=== PATIENT | female | born 1955 | race Caucasian/White ===

== ENCOUNTER → 2017-03-22 | Outpatient (CLI) | payer OTHER | LOC: BMCIMAGING 16:23 | PROVIDERS: ATTEND Podiatrist Foot & Ankle Surgery | DX: T84.84XA Pain due to internal orthopedic prosthetic devices, implants and grafts, initial encounter (principal) ==

== ENCOUNTER → 2017-06-15 | Outpatient (CLI) | payer OTHER | LOC: BMCIMAGING 15:20 | PROVIDERS: ATTEND Family Medicine | DX: Z12.31 Encounter for screening mammogram for malignant neoplasm of breast (principal) | CPT/HCPCS: G0202 ==

== ENCOUNTER 2017-11-18 17:50 | Emergency (ER) | payer OTHER ==
--- NOTE | 2017-11-18 18:15 | EDPHY ---
HPI/HX/ROS/PE/MDM Narrative: CHIEF COMPLAINT: Dizzy HISTORY OF PRESENT ILLNESS: The patient is a 62 y/o female complaining of dizziness and nausea onset this morning. While standing up from bed this morning she had a 2 minute episode of dizziness. This past and she was able to go to work and was not symptomatic. When she came home she lied down and then had again developed abrupt dizziness when lying flat. Dizziness is described as a spinning sensation. Nausea but no vomiting. Dizziness is worse when sitting up or moving her head. Denies numbness or tinging in extremities. Denies history of vertigo. In addition to the dizziness, she has had a constant posterior headache and a sore/stiff neck for 10 days. She took one Aspirin twice a day for this pain, which helped for 2 hours. No fevers or URI symptoms. No sinus infection symptomatology. No chest pain, palpitations, lightheadedness, diarrhea. REVIEW OF SYSTEMS: Aside from elements discussed in the HPI, a comprehensive 10-point review of systems was reviewed and is negative. PAST MEDICAL HISTORY: Hypothyroid, microdiscectomy, right foot surgery SOCIAL HISTORY: at bedside, employed as a teacher, lives in [place]. Normally quite active. Goes to [employer] daily. VITAL SIGNS: Reviewed by me GENERAL: Lying still and does not want to sit up or stand as this aggravates her symptoms. Well-developed, well-nourished, resting comfortably in no respiratory distress. HEENT: Atraumatic. Eyes: No nystagmus, icterus, no injection. EOMI. Mouth: moist mucous membranes. No erythema or lesions. Neck: supple with no adenopathy. Some tenderness throughout paraspinous muscles. No meningismus. Negative Kernig's. Negative Brudzinski's. LUNGS: Clear to auscultation bilaterally, no wheezes, rhonchi or rales. CARDIAC: Regular rate and rhythm, no rubs, murmurs or gallops. ABDOMEN: Soft, nontender, nondistended, bowel sounds normal. BACK: No CVA tenderness. EXTREMITIES: No trauma. No edema. Range of motion is normal throughout. NEURO: Feels imbalanced while moving in bed. Alert and oriented, cranial nerves II through XII are intact. Motor strength 5 over 5 in all major muscle groups. Sensation intact to light touch. Slightly ataxic gait. SKIN: Warm and dry, no rash. PSYCHIATRIC: Normal mentation, no agitation. Portions of this note were transcribed by a medical assembler. I personally performed a history, physical exam, medical decision making, and confirmed accuracy of information the transcribed note. ED Course: The patient is a 62 y/o female presenting with dizziness and nausea onset this afternoon. She has also had a constant posterior headache and a sore neck for 10 days. She has a normal neurological exam except mild imbalance when walking and no nystagmus. She is currently lying still and does not want to sit up or stand as this aggravates her symptoms. Labs, EKG, and head CT ordered. 10mg IV Decadron, 25mg IV Benadryl, and 4mg IV Zofran initially administered. administered. 1912: Spoke with radiologist, patient's head CT is normal. Patient received p.o. Meclizine, and Toradol for her headache. 2023: Re-examination. Patient states very mild improvement in her symptoms. She is able to turn her head to the left in the right, reporting no change in the vertigo when looking to the right but the dizziness becomes severe when returning the head to midline and also no change in vertigo when looking to the left but again the dizziness worsens when returning to midline. Offer the patient Valium which she declined. Will administer 1 L of normal saline a proceed with MRI. 2036: Reassessed patient and discussed laboratory and imaging findings. She continues to not feel better. Brain MRI ordered. 2199: MRI is normal. Reassessed patient. She is sitting up in bed. She has continued to feel slightly better over time, but does have dizziness if she moves too abruptly. We discussed admission to the hospital for ongoing symptomatic care. She would prefer to be discharged home. I offered her Valium, she would prefer to take this once she gets home. She is with her . Her blood pressure has gradually decreased to his its baseline level. Patient will be discharged home with instructions regarding meclizine and Valium and close follow-up with her primary care physician. MDM: Differential diagnosis of the patient's dizziness was considered including but not limited to peripheral and central causes of vertigo, cardiac arrhythmias, cardiac ischemia, electrolyte disturbances, neurologic causes, orthostatic causes including dehydration, and blood loss. - Data Points Imaging: Discussed imaging studies w/ call or contact centre operator Radiologist, I viewed and interpreted images myself Laboratory Results: Laboratory Results 11/18/17 19:15 11/18/17 19:15 Medications Given: Discontinued Medications Dexamethasone (Decadron Injection) 10 mg IVP EDNOW ONE Stop: 11/18/17 18:42 Last Admin: 11/18/17 19:18 Dose: 10 mg Diazepam (Valium 5 Mg Prepack#4) 1 btl TAKEHOME EDNOW ONE Stop: 11/18/17 22:01 Last Admin: 11/18/17 22:14 Dose: 1 btl Diphenhydramine HCl (Benadryl Injection) 25 mg IVP EDNOW ONE Stop: 11/18/17 18:42 Last Admin: 11/18/17 19:17 Dose: 25 mg Sodium Chloride (Ns) 1,000 mls @ 0 mls/hr IV ONCE ONE; Wide Open PRN Reason: Protocol Stop: 11/18/17 20:50 Last Admin: 11/18/17 21:32 Dose: 1,000 mls Ketorolac Tromethamine (Toradol) 15 mg IVP EDNOW ONE Stop: 11/18/17 19:17 Last Admin: 11/18/17 19:37 Dose: 15 mg Meclizine HCl (Meclizine Hcl) 25 mg PO EDNOW ONE Stop: 11/18/17 19:22 Last Admin: 11/18/17 19:37 Dose: 25 mg Meclizine HCl (Meclizine Hcl) 25 mg PO EDNOW ONE Stop: 11/18/17 22:01 Last Admin: 11/18/17 22:11 Dose: 25 mg Ondansetron HCl (Zofran) 4 mg IVP EDNOW ONE Stop: 11/18/17 18:40 Last Admin: 11/18/17 19:18 Dose: 4 mg General Time Seen by Provider: 11/18/17 18:10 Initial Vital Signs: Initial Vital Signs Temperature (C) 36.4 C 11/18/17 17:56 Heart Rate 76 11/18/17 17:56 Respiratory Rate 16 11/18/17 17:56 Blood Pressure 206/97 H 11/18/17 17:56 O2 Sat (%) 98 11/18/17 17:56 O2 Delivery Mode Room Air Allergies/Adverse Reactions: codeine [Codeine] Adverse Reaction (Unknown, Verified 11/18/17 17:56) NAUSEA Home Medications: Medication Instructions Recorded None 10/11/09 Meclizine HCl 12.5 - 25 mg PO TID PRN #20 tablet 11/18/17 Synthroid 11/18/17 Departure - Departure Disposition: Home, Routine, Self-Care Clinical Impression: Vertigo, Dizziness, Headache Condition: Good Instructions: Vertigo (ED), Acute Headache (ED) Additional Instructions: You may use meclizine, 25 mg, as needed for dizziness. This will also help with motion sickness. It is available [id number] or with prescription. You been given a prepack of Valium. You may take 1/2 tablet, 2.5 mg, up to 3 times a day as needed for ongoing vertigo. Valium will make you quite sleepy. Please get plenty of rest. Please monitor your blood pressure. Please take Tylenol or ibuprofen as needed for headache. I would not use aspirin in the future for headache pain. Please follow up with your primary care physician if you have concerns regarding the persistence of symptoms, development of new symptoms such as vomiting, severe headache pain, numbness or tingling in your arms or legs, weakness, or other concerns. Referrals: Inessa Woody MD [Primary Care Provider] - As per Instructions Stand Alone Forms: Work Excuse Prescriptions: Meclizine HCl 12.5 - 25 mg PO TID PRN #20 tablet PRN Reason: dizziness, vertigo Report Scribed for: Rachel Sweeney Report Scribed by: Hailey Razo Date of Report: 11/18/17 Time of Report: 18:14
--- NOTE | 2017-11-18 18:23 | CPEKG ---
Heart Rate: 61 RR Interval: 984 P-R Interval: 124 QRSD Interval: 80 QT Interval: 440 QTC Interval: 444 P [place]: 0 QRS [place]: 41 T Wave [place]: 46 EKG Severity - ABNORMAL ECG - EKG Impression: SINUS RHYTHM EKG Impression: ANTERIOR INFARCT, OLD Electronically Signed By: Rachel Sweeney 18-Nov-2017 21:00:53
[2017-11-18] MEDS ORDERED: ONDANSETRON 4 MG/2 ML VIAL IVP ONE (18:39)
[2017-11-18] MEDS ORDERED: DEXAMETHASONE 10 MG/ML VIAL IVP ONE (18:41)
[2017-11-18] MEDS ORDERED: KETOROLAC 15 MG/1 ML SDV IVP ONE (19:16)
[2017-11-18] MEDS ORDERED: MECLIZINE HCL 25 MG TAB PO ONE ×2 (19:21→22:00)
[2017-11-18 19:34] LABS: PLATELET COUNT 195 10^3/uL (150-400)
[2017-11-18 19:45] LABS: INR 0.93 (0.83-1.16); PROTIME(PATIENT) 12.7 SEC (12.0-15.0)
[2017-11-18] MEDS ORDERED: NS 1,000 ML IV ONE (20:49)
[2017-11-18] MEDS ORDERED: DIAZEPAM 5 MG PREPACK#4 BTL TAKEHOME ONE (22:00)
[2017-11-18] MEDS ORDERED: DIAZEPAM 5 MG TAB PO ONE (22:00)
[2017-11-18 22:22] VITALS: BP 159/88
== END 2017-11-18 22:22 | disposition home or self-care (01) ==
DX: R42 Dizziness and giddiness (principal); R51 Headache; E86.9 Volume depletion, unspecified
CPT/HCPCS: 96374; J1100; J1200; J1885; J2405